=== PATIENT | male | born 1960 | race African-American/Black ===

== ENCOUNTER → 2020-03-18 | Outpatient (CLI) | payer BC ==
--- NOTE | 2020-03-18 11:59 | RAD ---
Single AP view of the pelvis with AP and frog-leg lateral views of the right hip were obtained. History: Reason: PAIN / Spl. Instructions: / History: Comparison: none. No fracture is seen about the right proximal femur acetabulum. The femoral head is located in the acetabulum. No significant degenerative changes are seen. Impression: 1. Negative exam of the right hip. Electronically signed by: Tal Kulkarni MD (03/18/2020 11:56 AM) [id number]
--- NOTE | 2020-03-18 15:47 | RAD ---
Three-view lumbar spine series Clinical indications: Low back pain FINDINGS: No compression fracture or discitis or lytic process is evident. Transverse processes are intact. No anterolisthesis is seen. There is moderate degenerative endplate spurring without significant disc space narrowing throughout the lumbar spine. IMPRESSION: Moderate degenerative endplate spurring. No acute compression fracture. Electronically signed by: Alvin Garcia MD (03/18/2020 3:45 PM) [id number]
== END | disposition home or self-care (01) ==
LOC: DXRAD 11:16
PROVIDERS: ATTEND Family Medicine
DX: S79.911A Unspecified injury of right hip, initial encounter (principal); M46.07 Spinal enthesopathy, lumbosacral region; X58.XXXA Exposure to other specified factors, initial encounter; Y93.89 Activity, other specified; Y92.89 Other specified places as the place of occurrence of the external cause; Y99.8 Other external cause status
CPT/HCPCS: 72100; 73502